=== PATIENT | female | born 1955 | race Caucasian/White ===

== ENCOUNTER 2017-06-25 09:49 | Outpatient (CLI) | payer BC | END 2017-06-25 09:50 | disposition home or self-care (01) | LOC: BICMAMMO 09:49 | PROVIDERS: ATTEND Obstetrics & Gynecology | DX: Z12.31 Encounter for screening mammogram for malignant neoplasm of breast (principal) | CPT/HCPCS: 77063; 77067 ==

== ENCOUNTER 2018-06-28 09:52 | Outpatient (CLI) | payer BC, SELFPAY ==
--- NOTE | 2018-06-28 11:35 | BD ---
BONE DENSITOMETRY USING DEXA: Date: 06/28/18 HISTORY: Postmenopausal screening for osteoporosis. FINDINGS: Lumbar Spine: BMD (g/cm2) L1 0.760 T-Score: -2.1 Z-Score: -0.6 L2 0.710 T-Score: -2.9 Z-Score: -1.2 L3 0.788 T-Score: -2.7 Z-Score: -0.9 L4 0.810 T-Score: -2.3 Z-Score: -0.4 L1-L4 0.769 T-Score: -2.5 Z-Score: -0.8 Femoral Neck: 0.670 T-Score: -1.6 Z-Score: -0.1 Total Femur: 0.822 T-Score: -1.0 Z-Score: 0.2 IMPRESSION: Osteoporosis. POS: [facility]
== END 2018-06-28 09:53 | disposition home or self-care (01) ==
LOC: BICMAMMO 09:52
PROVIDERS: ATTEND Obstetrics & Gynecology
DX: Z12.31 Encounter for screening mammogram for malignant neoplasm of breast (principal); Z13.820 Encounter for screening for osteoporosis; R92.1 Mammographic calcification found on diagnostic imaging of breast; M81.0 Age-related osteoporosis without current pathological fracture
CPT/HCPCS: 77063; 77067; 77080

== ENCOUNTER 2019-06-02 18:30 | Inpatient (IN) | payer MEDICARE, OTHER ==
[~2019-06-02 18:30] MED LIST: Iopamidol-370 76% 500 ML 1 ML ONE
[2019-06-02 19:05] LABS: Bilirubin Small (Negative); Blood, Urine Negative (Negative); Glucose, Urine (Dipstick) Negative (Negative); Leukocyte Small (Negative); Nitrite Negative (Negative); Protein, Urine (Dipstick) Negative (Neg-Trace)
[2019-06-02 19:09] LABS: Clarity Clear (Clear)
[2019-06-02 19:17] LABS: #Eosinphils 0.1 thou/uL (0.0-0.7); #Lymphocytes 2.5 thou/uL (1.20-3.40); #Monocytes 0.5 thou/uL (0.11-0.59); #Neutrophils 6.4 thou/uL (1.40-6.50); %Basophils 0.5 % (0.0-1.0); %Eosinophils 0.9 % (0.0-10.0); %Lymphocytes 26.2 % (21.0-51.0); %Monocytes 4.7 % (0.0-10.0); %Neutrophils 67.6 % (42.0-75.0); Hemoglobin 14.6 g/dL (12.0-16.0); Mean Corpuscular HGB CONC 33.8 g/dL (32.0-36.0); Mean Corpuscular Hemoglobin 29.9 pg (27.0-31.0); Mean Corpuscular Volume 88.4 fL (78.0-98.0); Mean Platelet Volume 6.7 fL (7.4-10.4); Platelet Count 383 thou/uL (130-400); RBC Distribution Width 11.4 % (11.5-14.5); Red Blood Cell (RBC) Count 4.88 mill/uL (4.20-5.40); White Blood Cell (WBC) Count 9.5 thou/uL (4.8-10.8)
[2019-06-02 19:19] LABS: Bacteria/HPF Rare-Few HPF (None Seen); RBC/HPF 0-3 HPF (0-3)
[2019-06-02 19:41] LABS: ALT (SGPT) 13 U/L (8-55); AST (SGOT) 16 U/L (5-34); Albumin 4.5 g/dL (3.4-4.8); Alkaline Phosphatase 112 U/L (40-110); Anion Gap 18 mmol/L (10-20); BUN (Urea Nitrogen) 14 mg/dL (9.8-20.1); Bilirubin, Total 0.8 mg/dL (0.2-1.2); Calc. Creatinine Clearance 0 mL/min (70-130); Carbon Dioxide 22 mmol/L (23-31); Chloride 104 mmol/L (98-107); Estimated GFR-MDRD 74; Glucose 114 mg/dL (80-115); Lipase 32 U/L (8-78); Potassium 3.9 mmol/L (3.5-5.1); Protein, Total 7.5 g/dL (6.0-8.3); Sodium 140 mmol/L (136-145)
[2019-06-02] MEDS ORDERED: Ondansetron PF 4 MG/2 ML Vial ONE (23:11)
--- NOTE | 2019-06-02 23:13 | CT ---
CT ABDOMEN AND PELVIS WITH IV CONTRAST: 06/02/19 HISTORY: Intermittent upper and mid abdominal pain which started this morning. Associated nausea and vomiting. COMPARISON: None. FINDINGS: There is minimal dependent atelectasis at the right lung base. Calcified granuloma is present at the lateral right lung base. A subcentimeter too small to characterize hypodense lesions are seen in the right hepatic lobe with a few punctate calcified granulomata seen in the liver. Calcified granulomata are seen in the spleen. The pancreas, bilateral adrenal glands, kidneys, and partially distended urinary bladder demonstrate a normal CT appearance. The uterus demonstrates a normal CT appearance for the patient's age. There is a hiatal hernia present. The stomach is distended with fluid including fluid within the hia fiorella hernia. There are fluid filled loops of proximal small bowel measuring up to 3 cm. There is fecul ent type material seen in a few of the dilated loops of small bowel which could potentially represent a phytobezoar. There are more normal caliber loops of small bowel distally. No abrupt transition zo ne is present. These findings could be related to a very low grade partial small bowel obstruction. The appendix is visualized and normal in caliber. No free fluid, fluid collection or lymphadenopathy is seen in the abdomen or pelvis. Mild degenerative changes are seen in the spine. IMPRESSION: 1. Mildly dilated and fluid filled loops of small bowel seen within the central abdomen. Some of the dilated loops of small bowel do contain feculent type material which could be related to phytob ezoar. There is minimal stranding adjacent to a few of these loops of dilated small bowel. These fin dings may be related to low grade partial small bowel obstruction. There is no abrupt zone of transit ion, but there are more normal caliber loops of small bowel distally. 2. Too small to characterize hypodense lesions right hepatic lobe. 3. Hiatal hernia. POS: [facility]
[2019-06-03] MEDS ORDERED: Benzocaine 20% Spray 60 ML CAN ONE (00:24)
[2019-06-03] MEDS ORDERED: Lorazepam 2 MG/ML VIAL ONE (00:24)
[2019-06-03 02:17] VITALS: BMI 37.1
[2019-06-03] MEDS ORDERED: Ketorolac Tromethamine 30 MG/ML VIAL IVP PRN (03:16)
[2019-06-03] MEDS ORDERED: Sodium Chloride 0.9% (PF) 10 ML VIAL FS PRN (03:16)
[2019-06-03] MEDS ORDERED: Morphine 4 MG/ML VIAL SLOW IVP PRN ×2 (03:17→07:38)
[2019-06-03] MEDS ORDERED: Morphine 2 MG/ML SYRINGE SLOW IVP PRN ×2 (03:17→07:38)
[2019-06-03] MEDS ORDERED: Sodium Chloride 0.9% 1,000 ML IV SCH ×2 (03:30→07:45)
[2019-06-03] MEDS ORDERED: diphenhydrAMINE 50 MG/ML VIAL IVP SCH (03:30)
[2019-06-03] MEDS ORDERED: hydrALAZINE 20 MG/ML VIAL SLOW IVP PRN (07:38)
[2019-06-03] MEDS ORDERED: Ondansetron PF 4 MG/2 ML Vial IVP PRN (07:38)
[2019-06-03] MEDS ORDERED: Enoxaparin Sodium 40 MG/0.4 ML SYRINGE SC SCH (09:00)
[2019-06-03] MEDS ORDERED: Pantoprazole 40 MG VIAL IVP SCH (09:00)
--- NOTE | 2019-06-03 09:07 | RAD ---
PORTABLE CHEST: Date: 06/03/2019 HISTORY: NG tube placement. FINDINGS: Heart size within normal limits for portable technique. Increased density in the retrocardiac region is compatible with a hiatal hernia. NG tube overlying left upper quadrant and abdomen. IMPRESSION: NG tube within the fundus region of the stomach. POS: [facility]
--- NOTE | 2019-06-03 10:41 | HP ---
HISTORY OF PRESENT ILLNESS: Ayaka Dominique is 64-year-old female, lives in [place], , retired, had onset yesterday of nausea, vomiting, crampy abdominal pain. She has never had such pain before. She did not eat anything unusual. She presented to the emergency room. White count 9 and hemoglobin 14.6. Comprehensive metabolic profile normal. CAT scan of the abdomen and pelvis, she has distended stomach, air-fluid levels, small hiatal hernia, and distended small bowel with some fecalization, otherwise unremarkable. Small bowel dilated to 3 cm, suggesting a possible phytobezoar. NG tube was placed, confirmed radiologically by chest x-ray and 300 output. Her abdominal pain is resolved by morning. She has not passed any gas or stool. She had a colonoscopy 5 years ago that was unremarkable. ALLERGIES: NONE. SOCIAL HISTORY: Tobacco, none. Alcohol, none. PAST MEDICAL HISTORY: Hypertension. PAST SURGICAL HISTORY: Noncontributory. MEDICATIONS: 1. Pravastatin. 2. Raloxifene. 3. Lisinopril. 4. Furosemide. 5. Vitamin D3. REVIEW OF SYSTEMS: Ten-point noncontributory. Cardiopulmonary, noncontributory. PHYSICAL EXAMINATION: VITAL SIGNS: Height 5 feet and 4 inches, weight 216 pounds, and BMI 37. Temperature 98.2, pulse 87, blood pressure 147/80. HEAD, EARS, EYES, NOSE AND THROAT: Unremarkable. LUNGS: Clear to auscultation. CARDIAC: Regular rate and rhythm without murmur or gallop. ABDOMEN: Soft and nontender. No hernias. EXTREMITIES: Unremarkable. Palpable pedal pulses. No ankle edema. NEUROLOGIC: Intact. LYMPHS: No lymphadenopathy in neck, axilla, or groins. ASSESSMENT AND PLAN: Nausea, vomiting episode with abnormal CAT scan as described. We will plan small bowel follow-through today, and make further recommendations on these findings. Job ID: [id number]
[2019-06-03 10:54] VITALS: BP 148/80; TEMP 98.1
[2019-06-03] MEDS ORDERED: MD-Gastroview 120 ML BOT ONE (15:37)
--- NOTE | 2019-06-03 15:57 | PRG ---
DATE OF SERVICE: 06/03/2019 Ms. Dominique had a small-bowel follow-through today that was normal. There is no evidence of obstruction. She probably had some accumulation of vegetative matter. I have encouraged her to consume more liquids. She will be discharged home this afternoon and follow up with me as needed. See Dr. Rizvi as needed. I have reminded her that this event is not related to her colon and she should follow up with gastrologist for future colonoscopy is recommended. Job ID: [id number]
--- NOTE | 2019-06-03 16:03 | RAD ---
XR Small Bowel STANDARD History: Small bowel obstruction Comparison: CT prior day Findings: Enteric contrast was instilled via the enteric tube. Contrast transits throughout the small bowel into the large bowel by 1 hour. Impression: No high-grade small bowel obstruction.
[2019-06-03] MEDS ORDERED: Atorvastatin Calcium 10 MG TAB PO SCH (21:00)
[2019-06-04] MEDS ORDERED: Lisinopril 20 MG TAB PO SCH (09:00)
[2019-06-04] MEDS ORDERED: Furosemide 20 MG TAB PO SCH (09:00)
== END 2019-06-03 17:08 | disposition home or self-care (01) | DRG 392 ==
LOC: ERS 18:30 → SURG A 06-03 02:09
PROVIDERS: ADMIT Specialist; ATTEND Specialist
DX: R10.9 Unspecified abdominal pain (principal); R11.2 Nausea with vomiting, unspecified; I10 Essential (primary) hypertension; Z79.899 Other long term (current) drug therapy
CPT/HCPCS: 36415; 71045; 74177; 74250; 80053; 81003; 81015; 83690; 85025; 96374; 96375; B4087; C9113; J1200; J1650; J1885; J2060; J2405; Q9967

== ENCOUNTER 2020-08-03 09:46 | Outpatient (CLI) | payer MEDICARE, OTHER | END 2020-08-03 09:47 | disposition home or self-care (01) | LOC: BICMAMMO 09:46 | PROVIDERS: ATTEND Obstetrics & Gynecology | DX: Z13.820 Encounter for screening for osteoporosis (principal); M85.852 Other specified disorders of bone density and structure, left thigh | CPT/HCPCS: 77080 ==